=== PATIENT | female | born 1980 | race Caucasian/White ===

== ENCOUNTER 2020-10-19 20:14 | Emergency (ER) | payer MEDICAID ==
[~2020-10-19] VITALS: Ht 162.6 cm; Wt 64.0 kg
[2020-10-19 20:32] VITALS: BP 132/80
[2020-10-19] MEDS ORDERED: POLYVINYL ALCOHOL OPHTH DROPS 15ML LEFTEYE STA (22:22)
[2020-10-19] MEDS ORDERED: ACETAMINOPHEN 325MG TABLET PO ONE (22:30)
[2020-10-19] MEDS ORDERED: ONDANSETRON 4MG ODT PO ONE (22:30)
[2020-10-19] MEDS ORDERED: PREDNISONE 20MG TABLET PO ONE (22:30)
[2020-10-19] MEDS ORDERED: P20 MT (22:31)
[2020-10-19] MEDS ORDERED: PEG15DRO5 LEFTEYE (22:31)
[2020-10-19] MEDS ORDERED: VALA100044 PO (22:31)
== END 2020-10-19 23:04 | disposition home or self-care (01) ==
LOC: ER 20:14
DX: R51.9 Headache, unspecified (principal); G51.0 Bell's palsy
CPT/HCPCS: 82962; 99284; J7512; Q0162

== ENCOUNTER 2020-10-23 12:09 | Emergency (ER) | payer MEDICAID ==
[~2020-10-23] VITALS: Ht 162.6 cm; Wt 75.0 kg
[~2020-10-23 12:09] MED LIST: P20 MT; PEG15DRO5 LEFTEYE; VALA100044 PO
[2020-10-23 12:32] VITALS: BP 116/68
== END 2020-10-23 16:36 | disposition home or self-care (01) ==
LOC: ER 13:37
DX: G51.0 Bell's palsy (principal)
CPT/HCPCS: 99281

== ENCOUNTER 2023-08-01 11:48 | Emergency (ER) | payer MEDICAID, OTHER ==
[~2023-08-01] VITALS: Ht 165.1 cm; Wt 75.0 kg
[~2023-08-01 11:48] MED LIST changes: +PEG15DRO14 LEFTEYE; -PEG15DRO5 LEFTEYE
[2023-08-01 12:00] VITALS: TEMP 98.1; O2SAT 100
[2023-08-01 12:15] VITALS: BP 116/79; PULSE 74; RESP 18
[2023-08-01] MEDS: KETOROLAC 30MG/ML VIAL IM ONE (12:15)
[2023-08-01] MEDS ORDERED: IBUP-2030 MT (13:31)
== END 2023-08-01 15:59 | disposition home or self-care (01) ==
LOC: ER 11:48
DX: S92.002A Unspecified fracture of left calcaneus, initial encounter for closed fracture (principal); W18.30XA Fall on same level, unspecified, initial encounter; Y93.9 Activity, unspecified; Y92.89 Other specified places as the place of occurrence of the external cause; Y99.8 Other external cause status
CPT/HCPCS: 99284; 29515; 81025; 73610; 73630; 96372; J1885

== ENCOUNTER 2023-08-01 17:34 | Emergency (ER) | payer OTHER ==
[~2023-08-01] VITALS: Ht 165.1 cm; Wt 65.0 kg
[~2023-08-01 17:34] MED LIST changes: +IBUP-2030 MT
[2023-08-01 17:40] VITALS: BP 117/81; PULSE 100; RESP 18; TEMP 97.7; O2SAT 99
== END 2023-08-01 18:35 | disposition left against medical advice (07) ==
LOC: ER 17:34
DX: M79.605 Pain in left leg (principal); M79.672 Pain in left foot; M25.572 Pain in left ankle and joints of left foot; Z53.21 Procedure and treatment not carried out due to patient leaving prior to being seen by health care provider

== ENCOUNTER 2025-02-22 12:01 | Emergency (ER) | payer MEDICAID, OTHER ==
[~2025-02-22] VITALS: Ht 165.1 cm; Wt 76.0 kg
[2025-02-22 12:18] VITALS: O2SAT 100
[2025-02-22] MEDS: ACETAMINOPHEN 325MG TABLET PO ONE (16:57)
[2025-02-22 17:35] LABS: HEMATOCRIT. 36.4 % (36.0-48.0); HEMOGLOBIN. 12.0 g/dL (12.0-16.0); MEAN PLATELET VOLUME 11.0 fl (7.4-10.4); PLATELET 139 x1000/uL (130-400); RED BLOOD CELL COUNT 4.02 mill/uL (4.2-5.4); RED CELL DISTRIBUTION WIDTH 13.3 % (11.6-14.6)
[2025-02-22 17:46] LABS: CREATININE 0.6 mg/dL (0.6-1.0); UREA NITROGEN BLOOD < 5 mg/dL (9-23)
[2025-02-22 17:51] LABS: HCG SCREEN NEGATIVE
[2025-02-22] MEDS ORDERED: P50 MT (18:22)
[2025-02-22] MEDS ORDERED: VALA100044 MT (18:22)
[2025-02-22] MEDS ORDERED: DEXT15DR5 LEFTEYE (18:22)
[2025-02-22] MEDS ORDERED: IBUP-1455 MT (18:22)
[2025-02-22] MEDS: KETOROLAC 15MG/ML VIAL IM ONE (18:31)
[2025-02-22] MEDS: METOCLOPRAMIDE HCL 10MG TABLET PO ONE (18:31)
[2025-02-22 18:35] VITALS: BP 130/78; PULSE 72; RESP 18; TEMP 36.9; O2SAT 100
[2025-02-22 23:45] LABS: BASOPHILS % MANUAL 1.0 % (0.0-2.0); EOSINOPHILS % MANUAL 1.0 % (0.0-5.0); LYMPHOCYTES % MANUAL 42.0 % (20.0-60.0); MONOCYTES % MANUAL 15.0 % (2.0-8.0); NEUTROPHILS % MANUAL 41.0 % (45.0-75.0); PLATELET ESTIMATE NORMAL
== END 2025-02-22 18:36 | disposition home or self-care (01) ==
LOC: ER 12:01
DX: G51.0 Bell's palsy (principal); R51.9 Headache, unspecified; Z79.624 Long term (current) use of inhibitors of nucleotide synthesis
CPT/HCPCS: 99285; 70450; 80048; 81025; 84703; 85025; 36415; 73030; 96372; J1885; J8597